=== PATIENT | male | born 1985 | race Two or more races ===

== ENCOUNTER 2023-04-16 22:54 | Emergency (ER) | payer OTHER ==
[~2023-04-16] VITALS: Ht 170.2 cm; Wt 74.8 kg
--- NOTE | 2023-04-16 23:34 | NUR ---
[id number] FRM HOME FOR ETOH. PT TOLERATIG R/A WELL WITH NO RESP DISTRESS. SAFETY MEASURES IN PLACE.
[2023-04-16 23:35] LABS: BASOPHILS # (AUTO) 0.1 K/uL (0.0-0.2); BASOPHILS % (AUTO) 0.9 % (0.0-2.0); EOSINOPHILS % (AUTO) 2.7 % (0.0-6.0); HEMATOCRIT 37 % (39-51); HEMOGLOBIN 12.5 g/dL (13.5-17.5); LYMPHOCYTES # (AUTO) 3.1 K/uL (0.8-4.8); LYMPHOCYTES % (AUTO) 44.1 % (20.0-44.0); MEAN CORPUSCULAR HGB CONC 33 g/dl (31.0-36.0); MEAN CORPUSCULAR VOLUME 94 fL (80-96); MONOCYTES % (AUTO) 14.8 % (2.0-12.0); NEUTROPHILS # (AUTO) 2.6 K/uL (1.8-8.9); NEUTROPHILS % (AUTO) 37.5 % (43.0-81.0); PLATELET COUNT (AUTO) 160 K/uL (150-450); RED BLOOD CELL COUNT(AUTO) 3.96 MIL/uL (4.5-6.0)
[2023-04-16 23:54] LABS: ALBUMIN 4.4 g/dL (3.4-5.0); BILIRUBIN,DIRECT 0.1 mg/dL (0.0-0.2); BILIRUBIN,TOTAL 0.5 mg/dL (0.2-1.0); CALCIUM, SERUM 7.9 mg/dL (8.5-10.1); POTASSIUM 3.8 mmol/L (3.5-5.1); TOTAL PROTEIN, SERUM 8.4 g/dL (6.4-8.2)
--- NOTE | 2023-04-17 00:04 | NUR ---
CREATININE [address] TEMPLETON AWARE
--- NOTE | 2023-04-17 05:45 | NUR ---
PT SLEEPING. RR EVEN AND NONLABORED. SAFTY MEASURES IN PLACE
--- NOTE | 2023-04-17 06:22 | NUR ---
FARRUKH [phone] WILL POT PUNCHER PT FOR D/C
--- NOTE | 2023-04-17 06:43 | NUR ---
Patient discharged to home in stable condition. Written and verbal after care instructions given. Patient verbalizes understanding of instruction. pt ambulatory with a steady gait
[2023-04-17 06:50] VITALS: BP 142/90
== END 2023-04-17 06:50 | disposition home or self-care (01) ==
LOC: ER 22:57
DX: F10.129 Alcohol abuse with intoxication, unspecified (principal); I12.0 Hypertensive chronic kidney disease with stage 5 chronic kidney disease or end stage renal disease; N18.6 End stage renal disease; Z99.2 Dependence on renal dialysis; Y90.8 Blood alcohol level of 240 mg/100 ml or more
CPT/HCPCS: 36415; 80048-TC; 80076-TC; 85025-TC; G0480